=== PATIENT | female | born 2000 | race Caucasian/White ===

== ENCOUNTER → 2021-06-23 | Outpatient (CLI) | payer OTHER, BC ==
[2021-06-27 14:10] LABS: HPV 16 Negative (Negative); HPV 18 Negative (Negative); HPV OTHER HR TYPES Negative (Negative)
== END | disposition home or self-care (01) ==
LOC: LAB SHORT 19:18 → LAB 19:18
PROVIDERS: Family Medicine
DX: Z01.419 Encounter for gynecological examination (general) (routine) without abnormal findings (principal)
CPT/HCPCS: 87624; G0123

== ENCOUNTER → 2022-09-07 | Outpatient (CLI) | payer OTHER, BC ==
[2022-09-11 09:09] LABS: F001-IGE EGG WHITE 0.18 kU/L (Class 0/I); F002-IGE MILK 0.16 kU/L (Class 0/I); F003-IGE CODFISH <0.10 kU/L (Class 0); F004-IGE WHEAT <0.10 kU/L (Class 0); F010-IGE SESAME SEED <0.10 kU/L (Class 0); F013-IGE PEANUT <0.10 kU/L (Class 0); F014-IGE SOYBEAN <0.10 kU/L (Class 0); F017-IGE HAZELNUT (FILBERT) <0.10 kU/L (Class 0); F020-IGE ALMOND <0.10 kU/L (Class 0); F024-IGE SHRIMP 1.45 kU/L (Class III); F040-IGE TUNA <0.10 kU/L (Class 0); F041-IGE SALMON <0.10 kU/L (Class 0); F202-IGE CASHEW NUT <0.10 kU/L (Class 0); F256-IGE WALNUT <0.10 kU/L (Class 0); F338-IGE SCALLOP 0.34 kU/L (Class I)
[2022-09-11 18:09] LABS: T-TRANSGLUTAMINASE (TTG) IGA 3 U/mL (0-3); T-TRANSGLUTAMINASE (TTG) IGG <2 U/mL (0-5)
== END | disposition home or self-care (01) ==
LOC: LAB SHORT 09:00
PROVIDERS: Family Medicine
DX: L30.9 Dermatitis, unspecified (principal)
CPT/HCPCS: 83516; 86003; 86364

== ENCOUNTER → 2023-03-28 | Outpatient (CLI) | payer OTHER ==
[2023-03-29 11:36] LABS: Candida species (DNA Probe) Positive (NEGATIVE); G. vaginalis (DNA Probe) Positive (NEGATIVE); T. vaginalis (DNA Probe) Negative (NEGATIVE)
== END | disposition home or self-care (01) ==
LOC: LAB SHORT 18:46 → LAB 18:46
PROVIDERS: Family Medicine
DX: N89.8 Other specified noninflammatory disorders of vagina (principal)
CPT/HCPCS: 87480; 87510; 87660

== ENCOUNTER 2024-12-10 09:24 | Day surgery (SDC) | payer BC, OTHER ==
[2024-12-10] VITALS (11 sets, daily range): BP systolic 114–140; BP diastolic 66–84
[~2024-12-10] VITALS: Ht 154.9 cm; Wt 95.2 kg
[~2024-12-10 09:24] MED LIST: ALBU90OI INH; ALBUTEROL1.25 MG/3 INH; ANORO ELLIPTA1 EACH INH; ATOR80 PO; Adipex-P37.5 M1 PO; Amlodipine Besyl5 MG PO; BEYAZ 28 TABLE1 EACH PO; Budeprion Xl300 MG PO; CeFAZolin Sodium 2,000 MG VIAL ONE; CeFAZolin Sodium 2,000 MG in NS 100 ML IV SCH; Cymbalta20 MG PO; FLUT.05NI; GABA300 PO; Lactated Ringer's 1,000 ML IV SCH; METFORMIN HCL500 MG PO; MONT10T PO; MULTI-VITAMIN1 EAC2 PO; Triamcinolone A15 G3 TOP; ZYRTEC10 M2 PO
--- NOTE | 2024-12-10 10:01 | NUR ---
Ambulatory in Day Surgery History, Chart, Medications and Allergies reviewed before start of procedure. Pre-Op teaching done. Pt verbalizes understanding. Patient States Post-Procedure ride home has been arranged.
[2024-12-10] MEDS ORDERED: Bupivacaine 0.5% HCl 5 MG/ML 30MLVIAL ONE (10:07)
[2024-12-10] MEDS ORDERED: Midazolam HCl 1MG / ML 2ML Vial ONE (10:28)
[2024-12-10] MEDS ORDERED: FentaNYL Citrate 50 MCG/ML 2 ML Injection ONE ×3 (10:28→11:54)
[2024-12-10] MEDS ORDERED: propofoL 20 ML IV ONE (10:28)
[2024-12-10] MEDS ORDERED: Lidocaine HCl 2% 20 ML MDV ONE (10:43)
[2024-12-10] MEDS ORDERED: Dexamethasone Sod Phos 10 MG/ML 1ML VIAL ONE (10:53)
[2024-12-10] MEDS ORDERED: Ondansetron HCl 2 MG / ML 2ML Vial ONE (10:53)
[2024-12-10] MEDS ORDERED: Sugammadex Sodium 200 MG/2ML SDV (100 MG/ML) ONE (10:54)
[2024-12-10] MEDS ORDERED: Prochlorperazine Edisylate 10 mg Vial IV PRN (11:00)
[2024-12-10] MEDS ORDERED: Atropine Sulfate 0.1 MG/ML 10ML SYR IV PRN (11:00)
[2024-12-10] MEDS ORDERED: Ondansetron HCl 2 MG / ML 2ML Vial IV PRN (11:00)
[2024-12-10] MEDS ORDERED: Albuterol 2.5 MG/3 ML VIAL INH PRN (11:00)
[2024-12-10] MEDS ORDERED: FentaNYL Citrate 50 MCG/ML 2 ML Injection IV PRN ×2 (11:00→11:05)
[2024-12-10] MEDS ORDERED: Labetalol HCL 5 MG/ML 4ML Injection (Single Dose) IV PRN (11:00)
[2024-12-10] MEDS ORDERED: HYDROmorphone HCl/Pf 1MG SYR IV PRN ×2 (11:05)
--- NOTE | 2024-12-10 12:07 | NUR ---
12/10/24 1207 Lorna Tolbert 10ML OF ISOVUE USED BY DR. RED
[2024-12-10] MEDS ORDERED: HYDROcodone 5-APAP 325 TAB PO PRN (12:20)
[2024-12-10] MEDS ORDERED: HYDROmorphone HCl/Pf 1MG SYR ONE (12:28)
--- NOTE | 2024-12-10 13:39 | NUR ---
PT REPORTS SLIGHT NAUSEA, TX WITH ZOFRAN AND NOW PT DRINKING WATER AND EATING CHIPS, STATES PAIN MEDICATION (NORCO) STARTING TO HELP, PT HAS REFERRED SHOULDER PAIN AND KNOWS TO USE HEAT AND MOVEMENT TO HELP.
--- NOTE | 2024-12-10 13:52 | NUR ---
Discharge instructions reviewed with patient. Patient verbalizes understanding. Copy given to patient to take home. STERI STRIPS X4 INTACT, SLIGHT IRRIGATION LIKE DRAINAGE TO UMBILICAL INCISION, APPLIED 2X2 ZACHERY, OTHER THREE STERI STRIPS C/D/I. PT REPORTS RELEIF WITH ZOFRAN AND "GAS" PAIN IMPROVING. Discharged via wheelchair to private car for ride home.
== END 2024-12-10 13:55 | disposition home or self-care (01) ==
LOC: ORSCMMR 09:24 → ORD 10:30 → ORSCMMR 13:55
PROVIDERS: Surgery
PROC: BF031ZZ Plain Radiography of Gallbladder and Bile Ducts using Low Osmolar Contrast (ICD-10-PCS; principal; 2024-12-10 10:30)
PROC: 0FT44ZZ Resection of Gallbladder, Percutaneous Endoscopic Approach (ICD-10-PCS; principal; 2024-12-10 10:30)
DX: K80.20 Calculus of gallbladder without cholecystitis without obstruction (principal); F90.9 Attention-deficit hyperactivity disorder, unspecified type; E78.2 Mixed hyperlipidemia; E28.2 Polycystic ovarian syndrome; E66.9 Obesity, unspecified; Z68.39 Body mass index [BMI] 39.0-39.9, adult; F41.9 Anxiety disorder, unspecified; F32.A Depression, unspecified; Z79.899 Other long term (current) drug therapy
CPT/HCPCS: 74300; 88304; A9270; C1729; J0690; J1100; J1171; J2250; J2405; J2704; J3010; J7120